=== PATIENT | female | born 1950 | race Caucasian/White ===

== ENCOUNTER 2020-01-13 12:53 | Outpatient (CLI) | payer MEDICARE ==
[2020-01-13 13:53] LABS: CLARITY,URINE CLOUDY (Clear); COLOR,URINE YELLOW (Yellow); GLUCOSE, URINE NEGATIVE (Neg); KETONES,URINE NEGATIVE (Neg); LEUKOCYTE ESTERASE ,URINE MODERATE (Neg); NITRITES, URINE NEGATIVE (Neg); OCCULT BLOOD,URINE TRACE-INTACT (Neg); PH,URINE 5.5 (4.8-8.0); PROTEIN,URINE NEGATIVE (Neg); UA COLLECTION TYPE NON-SPECIFIED; UROBILINOGEN,URINE 0.2 E.U/dL (0.2-1.0)
[2020-01-13 13:57] LABS: BACTERIA,URINE 2+ /HPF (Neg); CAL OXALATE CRYSTALS 2+ /HPF (NEGATIVE); SQUAMOUS EPITHELIAL CELL,UR MANY /LPF (FEW)
[2020-01-13 13:58] LABS: RBC,URINE 0-2 /HPF (0-2); WBC,URINE TNTC /HPF (0-4)
== END 2020-01-13 23:59 | disposition home or self-care (01) ==
LOC: LAB SPEC 12:53
PROVIDERS: ATTEND Family Medicine
DX: N39.0 Urinary tract infection, site not specified (principal)
CPT/HCPCS: 81001; 87077; 87088; 87186

== ENCOUNTER 2020-03-25 14:15 | Emergency (ER) | payer MEDICARE ==
[~2020-03-25] VITALS: Ht 180.3 cm; Wt 73.9 kg
--- NOTE | 2020-03-25 14:30 | NUR ---
[facility] [phone]
--- NOTE | 2020-03-25 15:13 | NUR ---
Thomas (daughter) [phone]. 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
[2020-03-25] MEDS ORDERED: QUET25TA34 PO (15:22)
[2020-03-25] MEDS ORDERED: SERT100T10 PO (15:22)
--- NOTE | 2020-03-25 15:22 | NUR ---
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 Patient has appointment for pre op tomorrow for colostomy removal on wednesday04/01/20. Per daughter patient continuously leaves house and wanders with sever dementia. Dr Peters at bedside to assess patient.
[2020-03-25] MEDS ORDERED: LORazepam 2 mg/ml vial IV ONE (15:30)
[2020-03-25] MEDS ORDERED: normal saline 1000ML IV soln IVB ONE (15:30)
[2020-03-25 15:52] LABS: BASOPHILS # (AUTO) 0.1 X10'3 (0-0.2); BASOPHILS % (AUTO) 0.7 % (0-1); EOSINOPHILS # (AUTO) 0.1 X10'3 (0-0.9); EOSINOPHILS % (AUTO) 0.8 % (0-6); HEMATOCRIT 36.3 % (35.0-45.0); HEMOGLOBIN 11.9 g/dl (12.0-16.0); LYMPHOCYTES # (AUTO) 1.1 X10'3 (1.1-4.8); LYMPHOCYTES % (AUTO) 13.8 % (21-51); MEAN CORPUSCULAR HEMOGLOBIN 30.5 PG (27.0-31.0); MEAN CORPUSCULAR HGB CONC 32.9 g/dL (33.0-36.5); MEAN CORPUSCULAR VOLUME 92.6 FL (78-98); MEAN PLATELET VOLUME 8.6 FL (7.4-10.4); MONOCYTES # (AUTO) 0.5 X10'3 (0-0.9); MONOCYTES % (AUTO) 6.8 % (2-12); NEUTROPHILS # (AUTO) 6.2 X10'3 (1.8-7.7); NEUTROPHILS % (AUTO) 77.9 % (42-75); PLATELET COUNT 265 X10'3 (140-440); RED BLOOD COUNT 3.92 X10'6 (4.20-5.60); RED CELL DISTRIBUTION WIDTH 13.4 % (11.5-14.5); WHITE BLOOD COUNT 7.9 X10'3 (4.5-11.0)
[2020-03-25 16:14] LABS: ALANINE AMINOTRANSFERASE 18 U/L (12-78); ALBUMIN 3.9 G/DL (3.4-5.0); ALKALINE PHOSPHATASE 75 IU/L (46-116); ANION GAP 13 (8-16); ASPARTATE AMINO TRANSFERASE 26 U/L (10-37); BILIRUBIN,TOTAL 0.8 MG/DL (0.1-1.0); BLOOD UREA NITROGEN 21 MG/DL (7-18); CHLORIDE 107 MMOL/L (99-107); GLUCOSE 97 MG/DL (70-104); POTASSIUM 3.6 MMOL/L (3.5-5.1); SODIUM 143 MMOL/L (135-145); TOTAL PROTEIN 7.7 G/DL (6.4-8.2); eGFR 37 ML/MIN
[2020-03-25 16:18] LABS: ETHANOL < 0.010 GM/DL (0.0-0.010)
[2020-03-25 17:48] VITALS: BP 156/75
== END 2020-03-25 17:50 | disposition home or self-care (01) ==
LOC: ER 14:15
DX: F03.90 Unspecified dementia, unspecified severity, without behavioral disturbance, psychotic disturbance, mood disturbance, and anxiety (principal); J44.9 Chronic obstructive pulmonary disease, unspecified; N18.9 Chronic kidney disease, unspecified; I12.9 Hypertensive chronic kidney disease with stage 1 through stage 4 chronic kidney disease, or unspecified chronic kidney disease; Z88.0 Allergy status to penicillin; Z91.040 Latex allergy status; Z79.899 Other long term (current) drug therapy
CPT/HCPCS: 36415; 70450; 80053; 80320; 82140; 84443; 85025; 96374; 99284; J2060; J7030